=== PATIENT | male | born 1980 | race Caucasian/White ===

== ENCOUNTER 2016-11-06 12:24 | Observation (INO) | payer MEDICARE, MEDICAID ==
[2016-11-06] MEDS ORDERED: NS 0.9% 1000 ML* 1,000 ML IV ONE (13:09)
[2016-11-06 13:33] LABS: Mean Platelet Volume 8 um3 (7.4-10.4)
[2016-11-06 13:37] LABS: Hematocrit 18 % (42-52); Mean Corpuscular HGB Conc 29 g/dl (31-36); Mean Corpuscular Hemoglobin 20 pg (27-31); Mean Corpuscular Volume 69 fL (80-94); Red Blood Count 2.66 10^6/ul (4.0-5.4); Red Cell Distribution Width 24 % (10.5-15); White Blood Count 10.8 10^3/ul (3.5-10.8)
[2016-11-06 13:38] LABS: Comments Flag Yes
[2016-11-06 13:41] LABS: Add Diff/Slide Review? Slide Review Added; Hemoglobin 5.3 g/dl (14.0-18.0)
[2016-11-06 13:47] LABS: ALT 5 U/L (7-52); AST 7 U/L (13-39); Albumin 3.7 g/dL (3.2-5.2); Alkaline Phosphatase 51 U/L (34-104); Anion Gap 6 mmol/L (2-11); BUN/Creatinine Ratio 23.2 (8-20); Blood Urea Nitrogen 16 mg/dL (6-24); C Reactive Protein 12.15 mg/L (< 5.00); CO2 Carbon Dioxide 35 mmol/L (22-32); Calcium 9.3 mg/dL (8.6-10.3); Chloride 99 mmol/L (101-111); EGFR Non-African American 128.3 (>60); Globulin 3.2 g/dL (2-4); Glucose 113 mg/dL (70-100); Potassium 3.6 mmol/L (3.5-5.0); Sodium 140 mmol/L (133-145); Total Protein 6.9 g/dL (6.4-8.9)
--- NOTE | 2016-11-06 13:48 | RAD ---
HISTORY: Shortness of breath, pneumonia COMPARISONS: May 11, 2012 VIEWS:1: Single frontal portable view of the chest at 1:28 PM FINDINGS: LINES AND TUBES: None. CARDIOMEDIASTINAL SILHOUETTE: The cardiomediastinal silhouette is stable. PLEURA: The costophrenic angles are sharp. No pleural abnormalities are noted. LUNG PARENCHYMA: There is prominence of the central pulmonary vasculature ABDOMEN: The upper abdomen is clear. There is no subphrenic gas. BONES AND SOFT TISSUES: No bone or soft tissue abnormalities are noted. IMPRESSION: PULMONARY VASCULAR CONGESTION
[2016-11-06 13:49] LABS: Troponin I 0.01 ng/mL (<0.04)
[2016-11-06 13:57] LABS: Microcytosis 2+; Tear Drop Cells 1+
[2016-11-06 13:58] LABS: Add Path Review? YES; Polychromasia 1+
[2016-11-06] MEDS ORDERED: Acetaminophen TAB* 325 MG PO PRN (14:18)
[2016-11-06] MEDS ORDERED: Ondansetron INJ* 2 MG/ML VIAL IV PRN (14:18)
[2016-11-06] MEDS ORDERED: Furosemide IV* 10 MG/ML 2 ML VIAL (20 MG) IV SLOW PU ONE (14:20)
[2016-11-06 14:43] LABS: Iron 21 ug/dL (50-212); Total Iron Binding Capacity 507 mcg/dL (250-450); Transferrin 362 mg/dL (203-362)
[2016-11-06 15:02] LABS: Ferritin < 10.0 ng/mL (24-336)
[2016-11-06 15:08] LABS: Folate 12.07 ng/mL (>3.99)
[2016-11-06 15:09] LABS: Vitamin B12 181 pg/mL (180-914)
--- NOTE | 2016-11-06 15:09 | ED ---
Juice Rowan Salem, scribed for Hunter Galicia MD on 11/06/16 at 1253 . Shortness of Breath - HPI Summary HPI Summary: Patient is a 36 y/o M who presents to the ED with SOB for the past 3 days. Per, PCP H&H is abnormal and pt is oxygenating differently. Pt denies pain, cough, or diarrhea. Caregivers present at bedside state that his normal O2 Sat is in the 80s and typically drops with exertion, his normal HR in the 100s, and that he typically breaths with his abd. They deny blood in stool or syncope. No hx of blood transfusion. Pt has no other complaints. Pt has been taking iron pills for the past 2 days. - History of Current Complaint Chief Complaint: EDShortnessOfBreath Time Seen by Provider: 11/06/16 12:36 Hx Obtained From: Family/Client Professional, EMS Onset/Duration: Gradual Onset, Lasting Days, Still Present Timing: Constant Current Severity: Moderate Dyspnea At: Rest Aggrevating Factors: Movement Alleviating Factors: Nothing Associated Signs & Symptoms: Negative - Allergy/Home Medications Allergies/Adverse Reactions: Allergies Allergy/AdvReac Type Severity Reaction Status Date / Time No Known Allergies Allergy Verified 11/06/16 13:22 Home Medications: Home Medications Hydrochlorothiazide [Microzide-] 12.5 mg PO DAILY 11/06/16 [History Confirmed ] Iron-Vitamin C 65/125(Nf) [Vitron-C (NF)] 1 tab PO DAILY 11/06/16 [History Confirmed 11/06/16] Ramipril CAP* [Altace CAP*] 5 mg PO DAILY 11/06/16 [History Confirmed 11/06/16] amLODIPine TAB* [Norvasc 5 mg TAB*] 10 mg PO DAILY 11/06/16 [History Confirmed 11/06/16] PMH/Surg Hx/FS Hx/Imm Hx Cardiovascular History: Reports: Hx Hypertension Infectious Disease History: Denies: Traveled Outside the [place] in Last 30 Days - Family History Known Family History: Positive: Cardiac Disease - Social History Alcohol Use: None Hx Substance Use: No Substance Use Type: Reports: None Hx Tobacco Use: No Smoking Status (MU): Never Smoked Tobacco Review of Systems Constitutional: Other - No pain. Positive: Shortness Of Breath. Negative: Cough Negative: Diarrhea Genitourinary: Negative - No blood in stool. Negative: Syncope All Other Systems Reviewed And Are Negative: Yes Physical Exam - Summary Physical Exam Summary: The patient is well-nourished in no acute distress and in no acute pain. The skin is pale and dry. HEENT: The head is normocephalic and atraumatic. The pupils are equal and reactive. The conjunctivae are clear, without drainage, and are not pale. Nares are patent and without drainage. Mouth reveals dry mucous membranes and the throat is without erythema and exudate. The external ears are intact. The ear canals are patent and without drainage. The tympanic membranes are intact. Neck is supple with full range of motion and non-tender. There are no carotid bruits. There is no neck vein distension. Respiratory: Chest is non-tender. Lungs are clear to auscultation and breath sounds are symmetrical and equal. Intercostal retractions. Cardiovascular: Heart is tachycardic. There is no murmur or rub auscultated. Abdomen: The abdomen is soft and non-tender. There are normal bowel sounds heard in all four quadrants. Musculoskeletal: There is no back pain noted. Extremities are non-tender with full range of motion. Capillary refill in 3-4seconds. There is swelling of lower extremities. Neurological: Patient is alert and oriented to person, place and time. The patient has symmetrical motor strength in all four extremities. Psychiatric: The patient has an appropriate affect and does not exhibit any anxiety or depression. Triage Information Reviewed: Yes Vital Signs On Initial Exam: Initial Vitals Temp Pulse Resp BP Pulse Ox 99.1 F 104 20 148/106 82 11/06/16 12:29 11/06/16 12:29 11/06/16 12:29 11/06/16 12:29 11/06/16 12:29 Vital Signs Reviewed: Yes Diagnostics - Vital Signs Vital Signs Temp Pulse Resp BP Pulse Ox 11/06/16 12:29 99.1 F 104 20 148/106 82 - Laboratory Lab Results: Lab Results 11/06/16 11/06/16 11/06/16 Range/Units 13:15 13:15 13:15 WBC 10.8 (3.5-10.8) 10^3/ul RBC 2.66 L (4.0-5.4) 10^6/ul RBC (Retic) Cancelled Hgb 5.3 L* (14.0-18.0) g/dl Hct 18 L (42-52) % HCT (Retic) Cancelled MCV 69 L (80-94) fL MCH 20 L (27-31) pg MCHC 29 L (31-36) g/dl RDW 24 H (10.5-15) % Plt Count 340 (150-450) 10^3/ul MPV 8 (7.4-10.4) um3 Neut % (Auto) 80.2 (38-83) % Lymph % (Auto) 11.1 L (25-47) % Will % (Auto) 7.4 (1-9) % Eos % (Auto) 0.8 (0-6) % Baso % (Auto) 0.5 (0-2) % Absolute Neuts (auto) 8.6 H (1.5-7.7) 10^3/ul Absolute Lymphs (auto) 1.2 (1.0-4.8) 10^3/ul Absolute Monos (auto) 0.8 (0-0.8) 10^3/ul Absolute Eos (auto) 0.1 (0-0.6) 10^3/ul Absolute Basos (auto) 0.1 (0-0.2) 10^3/ul Absolute Nucleated RBC 0.03 10^3/ul Nucleated RBC % 0.3 Normal RBC Morphology Not Reportable Polychromasia 1+ Microcytosis 2+ Tear Drop Cells 1+ Elliptocytes 1+ Retic Count, Calc Cancelled Corrected Retic Count Cancelled Retic Shift Factor Cancelled Retic Production Index Cancelled Immature Retic Fraction Cancelled Mean Retic Volume Cancelled Hem Pathologist Commnt Pending Sodium 140 (133-145) mmol/L Potassium 3.6 (3.5-5.0) mmol/L Chloride 99 L (101-111) mmol/L Carbon Dioxide 35 H (22-32) mmol/L Anion Gap 6 (2-11) mmol/L BUN 16 (6-24) mg/dL Creatinine 0.69 (0.67-1.17) mg/dL Est GFR ( Amer) 165.0 (>60) Est GFR (Non-Af Amer) 128.3 (>60) BUN/Creatinine Ratio 23.2 H (8-20) Glucose 113 H (70-100) mg/dL Lactic Acid 1.2 (0.5-2.0) mmol/L Calcium 9.3 (8.6-10.3) mg/dL Iron 21 L (50-212) ug/dL TIBC 507 H (250-450) mcg/dL % Saturation 4 L (15-55) % Unsat Iron Binding 486 ug/dL Ferritin < 10.0 L (24-336) ng/mL Total Bilirubin 0.40 (0.2-1.0) mg/dL AST 7 L (13-39) U/L ALT 5 L (7-52) U/L Alkaline Phosphatase 51 (34-104) U/L Lactate Dehydrogenase 156 (140-271) U/L Troponin I 0.01 (<0.04) ng/mL C-Reactive Protein 12.15 H (< 5.00) mg/L B-Natriuretic Peptide ( - 100) pg/mL Total Protein 6.9 (6.4-8.9) g/dL Albumin 3.7 (3.2-5.2) g/dL Globulin 3.2 (2-4) g/dL Albumin/Globulin Ratio 1.2 (1-3) Vitamin B12 Pending Folate Pending Blood Type Antibody Screen Crossmatch 11/06/16 11/06/16 Range/Units 13:15 13:15 WBC (3.5-10.8) 10^3/ul RBC (4.0-5.4) 10^6/ul RBC (Retic) Hgb (14.0-18.0) g/dl Hct (42-52) % HCT (Retic) MCV (80-94) fL MCH (27-31) pg MCHC (31-36) g/dl RDW (10.5-15) % Plt Count (150-450) 10^3/ul MPV (7.4-10.4) um3 Neut % (Auto) (38-83) % Lymph % (Auto) (25-47) % Will % (Auto) (1-9) % Eos % (Auto) (0-6) % Baso % (Auto) (0-2) % Absolute Neuts (auto) (1.5-7.7) 10^3/ul Absolute Lymphs (auto) (1.0-4.8) 10^3/ul Absolute Monos (auto) (0-0.8) 10^3/ul Absolute Eos (auto) (0-0.6) 10^3/ul Absolute Basos (auto) (0-0.2) 10^3/ul Absolute Nucleated RBC 10^3/ul Nucleated RBC % Normal RBC Morphology Polychromasia Microcytosis Tear Drop Cells Elliptocytes Retic Count, Calc Corrected Retic Count Retic Shift Factor Retic Production Index Immature Retic Fraction Mean Retic Volume Hem Pathologist Commnt Sodium (133-145) mmol/L Potassium (3.5-5.0) mmol/L Chloride (101-111) mmol/L Carbon Dioxide (22-32) mmol/L Anion Gap (2-11) mmol/L BUN (6-24) mg/dL Creatinine (0.67-1.17) mg/dL Est GFR ( Amer) (>60) Est GFR (Non-Af Amer) (>60) BUN/Creatinine Ratio (8-20) Glucose (70-100) mg/dL Lactic Acid (0.5-2.0) mmol/L Calcium (8.6-10.3) mg/dL Iron (50-212) ug/dL TIBC (250-450) mcg/dL % Saturation (15-55) % Unsat Iron Binding ug/dL Ferritin (24-336) ng/mL Total Bilirubin (0.2-1.0) mg/dL AST (13-39) U/L ALT (7-52) U/L Alkaline Phosphatase (34-104) U/L Lactate Dehydrogenase (140-271) U/L Troponin I (<0.04) ng/mL C-Reactive Protein (< 5.00) mg/L B-Natriuretic Peptide 48 ( - 100) pg/mL Total Protein (6.4-8.9) g/dL Albumin (3.2-5.2) g/dL Globulin (2-4) g/dL Albumin/Globulin Ratio (1-3) Vitamin B12 Folate Blood Type A Positive Antibody Screen Negative Crossmatch See Detail Result Diagrams: 11/06/16 13:15 11/06/16 13:15 Lab Statement: Any lab studies that have been ordered have been reviewed, and results considered in the medical decision making process. - Radiology CXR Radiology Interpretation Completed By: Radiologist - IMPRESSION: PULMONARY VASCULAR CONGESTION - EKG 1317 EKG Rhythm: Sinus Tachycardia - 102bpm EKG Interpretation: Non-specific ST changes. Nml axis. No STEMI. QT interval nml. Course/Dx - Course Course Of Treatment: 36 y/o M presents with SOB for the past 3 days. Per PCP, pt s Hemoglobin = 6 and hematocrit = 20. Deny pain, cough, diarrhea, blood in stool, or syncope. Pt received fluids in ED course. EKG shows Sinus tachycardia @ 102bpm. Non-specific ST changes. Nml axis. No STEMI. QT interval nml. CXR shows, per radiology, IMPRESSION: PULMONARY VASCULAR CONGESTION. Will admit pt to Dr. Beckford. Accepted at 1330. - Diagnoses Differential Diagnosis/HQI/PQRI: Positive: Other - gi bleed, Provider Diagnoses: Symptomatic anemia, SOB (shortness of breath), GI (gastrointestinal bleed) - Physician Notifications Discussed Care of Patient With: Lauren Hernández Time Discussed With Above Provider: 13:05 Instructed by Provider To: Other - He has been having increased SOB, O2 sat in 70s, and dyspnea on exertion. Discharge - Discharge Plan Condition: Stable Disposition: ADMITTED TO [facility] Referrals: Lauren Hernández [Primary Care Provider] - The documentation as recorded by the Juice kendrick Salem accurately reflects the service I personally performed and the decisions made by , Hunter Galicia MD.
[2016-11-06 16:03] LABS: Corrected Retic Count 2.6 % (0.5-1.5); Immature Retic Fraction 0.69; Maturation Factor Retic 2.5
[2016-11-06 16:10] LABS: Comments Flag Yes
[2016-11-06] MEDS: Pantoprazole IV* 40 MG IV SCH (17:28)
[2016-11-06 22:33] LABS: Urine Bilirubin Negative (Negative); Urine Glucose Negative (Negative); Urine Nitrite Negative (Negative)
--- NOTE | 2016-11-07 01:54 | HP ---
CC: Lauren Hernández NP* HISTORY AND PHYSICAL: DATE OF ADMISSION: 11/06/16 PRIMARY CARE PROVIDER: Lauren Hernández NP. ATTENDING PHYSICIAN WHILE IN THE HOSPITAL: Rachele Beckford DO* (report dictated by Skyler Arroyo NP). CHIEF COMPLAINT: 1. Shortness of breath. 2. Low H and H. HISTORY OF PRESENT ILLNESS: Mr. Arzate is a 36-year-old male patient who has a history of anemia with iron deficiency, he has a history of intellectual developmental delay, it is mild. He has a history of hypertension. In addition to this, the mother states he was diagnosed at with genital anomalies. She comes in today because 2 days ago, they went to the doctor's office. It was noted that he had O2 saturations in the 70s. At that point, the patient's labs were drawn. His sats come up into the 90s with deep breathing exercises. The mother says that his is not too uncommon for him to have low O2 saturations because of his pattern of breathing. He had labs drawn. The family did receive a phone call today that the labs were low. His hemoglobin was 6 and the family was instructed to come into the hospital. There has been no reports of NSAID use. There has been no reports of tarry black stools. There has been no reports of lightheadedness or dizziness. The patient says he does not feel short of breath currently. He denies any chest pain. There has been no vomiting and there has been no bright red blood per rectum and no obvious signs of bleeding. The mother says that at times she does stop his iron pills for periods of time because it does cause him to be constipated. He has been chronically on iron medications. He had an upper endoscopy about [address] Jasso. There were some gastric erosions. This may have been the source of bleeding and he was placed on omeprazole. Unfortunately though, the patient does have hemoglobin of 5 today and 2 years ago was 15 and 14 respectively. The patient came into the ER, was evaluated, there was obviously concern for the low H and H and we were asked to evaluate for an admission. PAST MEDICAL HISTORY: Significant for: 1. Anemia. 2. Intellectual developmental delay. 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 4. Hypertension. PAST SURGICAL HISTORY: 1. He has had a cleft palate repair. 2. He has had left lower extremity surgeries for lengthening. MEDICATIONS: The home medications according to their handwritten list include: 1. Norvasc 10 mg daily. 2. Ramipril 5 mg daily. 3. Iron with vitamin C 1 tablet p.o. daily. 4. Hydrochlorothiazide 12.5 mg daily. ALLERGIES TO MEDICATIONS: Include no known drug allergies. FAMILY HISTORY: Reviewed and essentially noncontributory. SOCIAL HISTORY: He lives with his family. He does not smoke. He rarely drinks alcohol. Surrogate decision maker and guardian is his mother. REVIEW OF SYSTEMS: There is no documented fever. Denied having any significant weight changes. There was no double vision. There is no ear discharge. Denies having any rhinorrhea. No sore throat. No thyroid enlargement. Denied having any chest pain. There was no orthopnea. There was no nocturnal dyspnea. There was no abdominal discomfort. No nausea. No vomiting. No dysuria. No frequency. There was no seizure. No loss of consciousness. No pruritus and no skin ulcerations. Review of 14 systems completed, all others negative. PHYSICAL EXAMINATION GENERAL: At this time, Mr. Arzate is a 36-year-old male patient. He is sitting on the ER stretcher. He does not appear to be in any acute distress. VITAL SIGNS: Blood pressure 128/85, pulse 104, respirations 22, O2 sat 97% on room air, temperature 98.6. HEENT: Head is atraumatic and normocephalic. Eyes: EOMs are intact. Sclerae anicteric. He did appear to have pale lips and pale sclerae. His tongue was midline. Oral mucosa appeared to be moist. No oropharyngeal erythema. LUNGS: Clear to auscultation bilaterally. There are no wheezes, rales, or rhonchi. HEART: Sounds S1 and S2. Regular rate and rhythm. No murmurs, rubs, or gallops. ABDOMEN: Soft, flat and nontender. Bowel sounds are present. RECTAL: Did reveal brown stool. There was no melena noted and no bright red blood per rectum. EXTREMITIES: Pulses were 2+ throughout. He is able to move all 4 extremities. NEUROLOGIC: He is awake and he is alert and no gross focal deficits. SKIN: Intact. LABORATORY DATA AND DIAGNOSTIC STUDIES: The labs today revealed WBC of 10.8, RBC of 2.66, hemoglobin 5.3, hematocrit of 18, platelet count was 340,000. His sodium was 140, potassium 3.6, chloride of 99, bicarb 35, BUN 16, creatinine of 0.69, glucose 113, lactic 1.2, calcium 9.3. His iron was 21, which is low with iron saturation was 4, ferritin is pending. His total bili 0.4, AST 7, ALT 5, alk phos 51, LDH 156, troponin 0.01, CRP of 12.15. B12 and folate pending. Albumin normal. Chest x-ray obtained today and under my review, it is a very difficult and limited exam because of the patient's positioning. Radiology reads it as pulmonary vascular congestion. EKG obtained today as well, which revealed sinus tachycardia, rate of 102, no ST elevations or T wave inversions. He had subtle depression in lead II, III and aVF, but no previous for comparison. Old medical records were reviewed. ASSESSMENT AND PLAN: Mr. Arzate is a 36-year-old male patient coming into the ER today with complaints of abnormal blood work and shortness of breath. He will be admitted under observation status for: 1. Anemia. At this point, he certainly could have iron deficiency anemia. My plan is to go ahead and get a Hemoccult and if this is positive, then I would get in touch with GI, but he probably needs another scope at some point. Whether or not this needs to be done emergently in the hospital, I would like to see the Hemoccult. If it is positive, then I probably would do it here. We will check his H and H an hour after 2 units of blood. I will give him 20 of Lasix between the 2 units of blood. I am sending off reticulocyte counts in addition to his haptoglobin. I am sending off iron studies and B12 studies. We may need to consider followup with Hematology/Oncology as well depending on these findings, but for the time being, we will give him 2 units of blood and repeat his labs an hour after the blood. 2. Hypertension. Continue meds as prescribed except for the hydrochlorothiazide. 3. History of intellectual developmental delay. We will continue with supportive care. 4. DVT prophylaxis. Because of low H and H, he will be placed on SCDs. 5. Code status. Full code. 6. Fluids, electrolytes, nutrition. He can have a regular diet. TIME SPENT: Time spent on the admission was approximately 60 minutes; greater than half of the time spent [id number] with the patient obtaining my history and physical; other half time spent going over the plan of care with the patient and implementing plan of care. I did discuss the plan of care with my attending, Dr. Beckford, she is in agreement. SKYLER ARROYO, RAW HIDE TRIMMER [id number]/[facility]PS #: [id number] SANDRITA
[2016-11-07] MEDS: Pantoprazole IV* 40 MG IV SCH (05:09)
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
[2016-11-07] MEDS: amLODIPine TAB* 5 MG PO SCH ×2 (08:27→13:32)
[2016-11-07] MEDS: Ramipril CAP* 5 MG PO SCH ×2 (08:27→13:32)
[2016-11-07] MEDS ORDERED: Meperidine SYRINGE* 50 MG/ML ONE (10:32)
[2016-11-07] MEDS ORDERED: Midazolam* 1 MG/ML 10 ML VIAL (10 MG) ONE (10:32)
[2016-11-07 12:40] VITALS: BP 118/57
[2016-11-07 13:04] LABS: Hematocrit 24 % (42-52); Hemoglobin 7.3 g/dl (14.0-18.0); Mean Corpuscular HGB Conc 31 g/dl (31-36); Mean Corpuscular Hemoglobin 23 pg (27-31); Mean Corpuscular Volume 74 fL (80-94); Mean Platelet Volume 8 um3 (7.4-10.4); Red Blood Count 3.19 10^6/ul (4.0-5.4); Red Cell Distribution Width 25 % (10.5-15); White Blood Count 8.3 10^3/ul (3.5-10.8)
[2016-11-07 13:09] LABS: Add Diff/Slide Review? Manual Diff Added; Comments Flag Yes
[2016-11-07 13:14] LABS: BUN/Creatinine Ratio 12.1 (8-20); EGFR African American 173.7 (>60); EGFR Non-African American 135.1 (>60)
[2016-11-07 13:38] LABS: Immature Granulocytes 2 % (0-9); Microcytosis 1+; Myelocytes % 1 % (0-1); Neutrophil % 80 % (38-83)
[2016-11-07 13:39] LABS: Hypochromasia 2+; Polychromasia 1+
--- NOTE | 2016-11-08 08:17 | PRO ---
DATE: 11/07/16 - ROOM #411 REFERRING PRACTITIONER: Lauren Hernández NP, [place], [place] * PROCEDURE: Upper gastrointestinal endoscopy and CLOtest and biopsy of gastric fundal polyp. 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 He has been transfused two units and has been stable here in the hospital. See separate consultation. He has not had any overt bleeding as an outpatient and has been on omeprazole chronically, which dose relieve complaints of reflux. Informed consent was obtained with the patient's mother. ENDOSCOPIST: Dr. Crenshaw MEDICATIONS: Midazolam 5, meperidine 25. FINDINGS: He is a middle-aged man clearly with an abnormal physical structure with a short neck, thick tongue, but in no respiratory distress. Meds were given gradually and monitored closely. EGD: Larynx - no erythema, but only limited views. Esophagus - easily entered. Mucosa is normal in the upper, mid, and lower esophagus with the EG junction at 32 with no erosions or scarring. Stomach - large hiatal hernia, but no overt erosions. No blood was seen. A polyp was seen at the hiatal margin 12 to 13 mm somewhat granular with a spherical shape on a short stalk. Later in the procedure was biopsied x5. Otherwise, the rugal pattern was normal. In the proximal antrum, grater curvature aspect, there was a pale 3 to 4 mm polyp removed with biopsy forceps and submitted separately. A CLOtest also was taken. There were some minimal erosions in the distal antrum. There was no bleeding or wispy blood loss and no deformity. They were quite minimal. The pylorus appeared normal. Duodenum - the bulb and second through fourth portions appeared normal. IMPRESSION: 1. Large hiatal hernia - no Ray's erosions seen. 2. Minimal prepyloric erosions - CLOtest pending. 3. Gastric antral polyp - likely fundic gland. Addendum: hyperplastic FGP - will discuss with mother at OV 4. Gastric fundal polyp - appears benign and will need to be removed eventually though it was hypermobile with respirations, which were heightened in this man with a large hiatal hernia. Safe removal would require mosque of his hemoglobin and probably general anesthesia so the area can be still, presumably after a short interval with hyperventilation. 5. Iron-deficiency anemia - another Hemoccult was sent today as none of the issues identified above would likely cause heme-positive stool. Colonoscopy is a consideration, but clearly will be much more difficult than average to orchestrate safely and effectively. [id number]/[facility] #: [id number] SANDRITA
--- NOTE | 2016-11-08 12:30 | DS ---
CC: Lauren Hernández, [place]; Dr. Crenshaw* DISCHARGE SUMMARY: DATE OF ADMISSION: 11/06/16 DATE OF DISCHARGE: 11/07/16 PRIMARY CARE PROVIDER: Lauren Hernández, nurse practitioner. DISCHARGE DIAGNOSIS: Microcytic anemia most likely due to upper gastrointestinal bleed. The patient is status post endoscopy performed by Dr. Crenshaw on 11/07/16, which showed mild gastritis and a gastric polyp that was biopsied with pathology pending. SECONDARY DIAGNOSES: 1. History of anemia. 2. History of intellectual developmental delay. 3. Hypertension. 4. History of cleft palate repair. 5. History of ambulatory dysfunction. The patient ambulates with a walker or a wheelchair. MEDICATIONS AT DISCHARGE: Includes: 1. Ferrous sulfate 325 mg p.o. b.i.d. 2. Ramipril 5 mg daily. 3. Multivitamin 1 tablet daily. 4. Vitamin B12 1000 mcg p.o. daily. CONSULTATIONS DURING THE HOSPITAL STAY: Included from Dr. Crenshaw from gastroenterology. LABORATORY DATA AND STUDIES PERFORMED DURING THE HOSPITAL STAY: Included: On 11/06/16, white blood cell count of 8.3, hemoglobin of 7.2, hematocrit of 24 and platelets of 259. Sodium was 139, potassium 4.0, chloride 100, carbon dioxide 30, BUN 8, creatinine 0.66. The patient's TIBC was 507, iron of 21, % iron saturation of 4 and ferritin of below 10, vitamin B12 of 181 and folate 12. HOSPITALIZATION COURSE: Mr. Mathieu Arzate is a 36-year-old male with history of chromosomal abnormality at who is under the care of his parents throughout his life. He had history of vitamin deficiency anemia in the past, but the patient's mother had been treating it with [id number] iron pills with vitamin C a couple of times a week due to the side effect being constipation. The patient presented to the hospital after a routine blood work noted for the patient to have a hemoglobin of 5. He had no history of melena or bright red blood per rectum, but his stool Hemoccult was positive. He was placed on overnight observation and transfused two units of packed red blood cells with a good response from hemoglobin of 5.3 to 7.3 at that time of discharge. Dr. Crenshaw performed endoscopy on this patient that shows mild gastritis and gastric polyp that was biopsied. Mr. Crenshaw would like to see the patient approximately 4 weeks after discharge. At discharge, the patient is recommended to follow up with his primary care provider in approximately 1 week. The patient is also recommended to have iron supplements as directed above with an rife-erw-nernylt laxative as needed. A repeat CBC is ordered for 3 weeks approximately a week prior to followup with Dr. Crenshaw. The patient was also noted to have vitamin B12 at 181 and he was prescribed vitamin B12 oral supplementation. [id number]/[facility] #: [id number] SANDRITA
== END 2016-11-07 16:20 | disposition home or self-care (01) ==
LOC: ED 12:24 → MED 14:15
PROVIDERS: ADMIT Hospitalist; ATTEND Internal Medicine
DX: D50.9 Iron deficiency anemia, unspecified (principal); R06.02 Shortness of breath; K29.70 Gastritis, unspecified, without bleeding; K92.1 Melena; K44.9 Diaphragmatic hernia without obstruction or gangrene; K31.7 Polyp of stomach and duodenum; R09.89 Other specified symptoms and signs involving the circulatory and respiratory systems; R00.0 Tachycardia, unspecified; I10 Essential (primary) hypertension; R06.00 Dyspnea, unspecified; F81.9 Developmental disorder of scholastic skills, unspecified
CPT/HCPCS: 36415; 71010; 80048; 80053; 81003; 82272; 82607; 82728; 82746; 83010; 83540; 83550; 83605; 83615; 83880; 84484; 85025; 85045; 85060; 85610; 86140; 86850; 86900; 86901; 86922; 87077; 87641; 88305; 88342; 93005; 94760; 96361; 96374; 96375; 96376; 99283; A9270-GY; G0378; J1940; J2250; P9040

== ENCOUNTER 2017-01-01 10:23 | Inpatient (IN) | payer MEDICARE, MEDICAID ==
[2017-01-01 13:15] LABS: Hematocrit 15 % (42-52); Mean Corpuscular HGB Conc 29 g/dl (31-36); Mean Corpuscular Hemoglobin 22 pg (27-31); Mean Corpuscular Volume 75 fL (80-94); Mean Platelet Volume 7 um3 (7.4-10.4); Red Blood Count 2.01 10^6/ul (4.0-5.4); White Blood Count 6.9 10^3/ul (3.5-10.8)
[2017-01-01 13:17] LABS: Comments Flag Yes
[2017-01-01 13:18] LABS: Red Cell Distribution Width 23 % (10.5-15)
[2017-01-01 13:20] LABS: Hemoglobin 4.4 g/dl (14.0-18.0)
[2017-01-01 13:30] LABS: ALT 5 U/L (7-52); AST 8 U/L (13-39); Albumin 3.8 g/dL (3.2-5.2); Alkaline Phosphatase 49 U/L (34-104); Anion Gap 4 mmol/L (2-11); BUN/Creatinine Ratio 14.8 (8-20); Blood Urea Nitrogen 9 mg/dL (6-24); CO2 Carbon Dioxide 36 mmol/L (22-32); Calcium 9.6 mg/dL (8.6-10.3); Chloride 98 mmol/L (101-111); EGFR African American 190.3 (>60); EGFR Non-African American 147.9 (>60); Globulin 2.7 g/dL (2-4); Glucose 107 mg/dL (70-100); Lipase < 10 U/L (11.0-82.0); Potassium 3.9 mmol/L (3.5-5.0); Sodium 138 mmol/L (133-145); Total Protein 6.5 g/dL (6.4-8.9)
[2017-01-01] MEDS ORDERED: Ondansetron INJ* 2 MG/ML VIAL IV PRN (14:39)
[2017-01-01] MEDS ORDERED: Acetaminophen TAB* 325 MG PO PRN (14:39)
[2017-01-01] MEDS ORDERED: Furosemide IV* 10 MG/ML 2 ML VIAL (20 MG) IV ONE (14:42)
[2017-01-01 15:14] LABS: Urine Bacteria Absent (Absent); Urine Bilirubin Negative (Negative); Urine Glucose Negative (Negative); Urine Nitrite Negative (Negative)
--- NOTE | 2017-01-01 16:39 | HP ---
CC: Lauren Hernández NP; Dr. Jasso * HISTORY AND PHYSICAL: DATE OF ADMISSION: 01/01/17 PRIMARY CARE PROVIDER: Lauren Hernández NP ATTENDING PHYSICIAN: Rebecca Godoy MD * (report being dictated by Skyler Arroyo NP). CHIEF COMPLAINT: Abnormal labs. HISTORY OF PRESENT ILLNESS: Mr. Arzate is a 36-year-old male patient who has a history of intellectual developmental delay who has had issues with anemia recently here about 7 weeks ago in the beginning of November with low H and H, thought may be related to a GI bleed. He was admitted. No source was found. He was discharged, doing well and he was seeing Dr. Jasso in followup for possible colonoscopy. Repeat labs were obtained yesterday and it was noted that his hemoglobin was 4. At that point, he was directed to the ER today. The patient states that he has not been having any tarry stool. Mother says this as well, who helps care for him. There has been no vomiting, no coffee-ground emesis. The patient states he just has been feeling a little feeling tired. There has been no chest pain, no shortness of breath. There has been no abdominal pain. There has been no nausea, no vomiting, no dysuria, no frequency. There was no seizure, no loss of consciousness, no pruritus. There has been no again reports of NSAID use and no alcohol use. Mother does state that he has been evaluated by Dr. Crabtree, it was felt that there may be a subtle bleed going on that may be contributing to this in addition to the iron deficiency anemia. He came in, was evaluated by Dr. Anderson. It was noted that his H and H was low. Hospitalist service was asked to evaluate for admission. PAST MEDICAL HISTORY: Significant for: 1. Anemia. 2. Intellectual developmental delay. 3. Hypertension. 4. Genital anomalies. PAST SURGICAL HISTORY: The patient has a cleft palate. He has had left lower extremity surgery in the past. MEDICATIONS: The home meds according to the list that was obtained include: 1. Omeprazole 20 mg p.o. daily. 2. B12 at 1000 mcg daily. 3. Ramipril 5 mg p.o. daily. 4. Iron with vitamin C 1 tablet p.o. daily. 5. Hydrochlorothiazide 12.5 mg p.o. every other day. ALLERGIES: To medications include no known drug allergies. FAMILY HISTORY: The mother states that neither the mother or father have diabetes, hypertension, or any other medical problems. She states that both are heathy. SOCIAL HISTORY: The patient does not smoke. He does not drink. Surrogate decision maker is the patient's mother. REVIEW OF SYSTEMS: There is no documented fever. He denied having any significant weight change. There was no double vision. There was no ear discharge. He denied having any rhinorrhea. There was no sore throat. No thyroid enlargement. Denies having any chest pain. There was no orthopnea. No nocturnal dyspnea. There was no again abdominal pain. No nausea, no vomiting, no dysuria, no frequency. There was no seizure, no loss of consciousness, no pruritus, and no skin ulcerations. Review of 14 systems was completed; all others negative. PHYSICAL EXAMINATION GENERAL: At this time, Mr. Arzate is a 36-year-old male patient. He appears to be well nourished, well developed. He does not appear to be in any acute distress. He is awake, he is alert and oriented to self and place. VITAL SIGNS: Blood pressure 124/56, pulse 94, respirations 18, O2 sat 100%, temperature 99.9. HEENT: Head is atraumatic and normocephalic. Eyes: EOMs are intact. Sclerae are anicteric. They did appear to be pale. No oropharyngeal erythema. LUNGS: Clear to auscultation. No wheezes, rales, or rhonchi. HEART: Sounds S1, S2. Regular rate and rhythm. No murmurs, rubs, or gallops. ABDOMEN: Soft, flat, nontender. EXTREMITIES: Pulses are 2+ throughout. He is moving all 4 extremities. RECTAL: Did elicit dark stool, appeared to be black but not appear to be tarry , appeared to be greenish too, most likely from his iron. NEUROLOGIC: Again, awake, alert, he is oriented to self and place. He does not appear to be in any acute distress. SKIN: Intact. LABORATORY DATA: The labs today revealed a WBC of 6.9, RBC of 2.01, hemoglobin of 4.4, hematocrit of 15, and a platelet count 234. The sodium was 138, potassium is 3.9, chloride 98, bicarb was 36, BUN 9, creatinine 0.61, glucose 107. Lactic 0.9. Calcium 9.6. Total bili 0.4, AST 8, ALT 5, his alk phos was 49, lipase was negative. Hemoccult is pending. Old medical records were reviewed. ASSESSMENT AND PLAN: Mr. Arzate is a 36-year-old male patient coming in to the ER today, complains of abnormal lab data. It is noted that his hemoglobin was 4. We were asked to evaluate for admission. He will be admitted under observation status for: 1. Anemia. Again, it is unclear if this is from the iron deficiency anemia or if the patient does have a slow bleed. He just had an upper EGD done about 7 weeks ago, which was essentially negative despite the fact that he had a gastric polyp. At this point, I am not going to put him on PPI drip. I am going to be touching base with Dr. Jasso. I did send off a Hemoccult specimen as well. If it is positive, I would consider putting him on b.i.d. PPI until he is seen by GI. I am going to give him 2 units of blood. I am also going to give him an infusion of Venofer iron as well and we will check serial H and Hs. We will maintain 2 IVs and we will continue to follow closely. 2. Hypertension. We will hold his medications in the setting of his acute anemia. 3. Intellectual developmental delay. Likely needs supportive care. 4. DVT prophylaxis. Because of low H and H, he is going to be put on SCDs. 5. Code status. Full code. 6. Fluids, electrolytes, and nutrition. Again, he will have a clear liquid diet. We are going to transfuse him 2 units of blood, repeat the H and H and follow him closely. TIME SPENT: Time spent on the admission was 60 minutes, greater than half time spent [id number] with the patient obtaining history and physical, other half time was spent going over the plan of care with the patient and implementing the plan of care. I discussed plan of care with my attending, Dr. Godoy; she is in agreement. SKYLER ARROYO, [place] [id number]/[facility] #: [id number] [facility]
[2017-01-01] MEDS ORDERED: Furosemide IV* 10 MG/ML 2 ML VIAL (20 MG) ONE (20:13)
[2017-01-02 01:07] LABS: Hematocrit 23 % (42-52); Hemoglobin 6.8 g/dl (14.0-18.0)
[2017-01-02 01:08] LABS: Comments Flag Yes
[2017-01-02 06:44] LABS: Hematocrit 24 % (42-52); Hemoglobin 7.4 g/dl (14.0-18.0); Mean Corpuscular HGB Conc 31 g/dl (31-36); Mean Corpuscular Hemoglobin 25 pg (27-31); Mean Corpuscular Volume 78 fL (80-94); Mean Platelet Volume 7 um3 (7.4-10.4); Red Blood Count 3.01 10^6/ul (4.0-5.4); Red Cell Distribution Width 20 % (10.5-15); White Blood Count 5.8 10^3/ul (3.5-10.8)
[2017-01-02 06:58] LABS: BUN/Creatinine Ratio 11.9 (8-20); EGFR African American 197.7 (>60); EGFR Non-African American 153.7 (>60); Potassium 3.6 mmol/L (3.5-5.0)
[2017-01-02] MEDS: Omeprazole CAP* 20 MG PO SCH (08:19)
[2017-01-02] MEDS ORDERED: LORazepam TAB(*) 0.5 MG PO PRN (11:18)
[2017-01-02 13:24] LABS: Hematocrit 25 % (42-52); Hemoglobin 7.7 g/dl (14.0-18.0)
[2017-01-02] MEDS ORDERED: Polyethylene Glycol 3350 BTL* 238 GM BTL PO ONE (15:00)
--- NOTE | 2017-01-02 16:02 | PN ---
Subjective Date of Service: 01/02/17 Interval History: Patient without complaints. Objective Active Medications: Acetaminophen (Tylenol Tab*) 650 mg PO Q4H PRN PRN Reason: FEVER/PAIN Lorazepam (Ativan Tab(*)) 0.25 mg PO Q24H PRN PRN Reason: ANXIETY Omeprazole (Prilosec Cap*) 20 mg PO DAILY FARHEEN Last Admin: 01/02/17 08:19 Dose: 20 mg Ondansetron HCl (Zofran Inj*) 4 mg IV Q6H PRN PRN Reason: NAUSEA Polyethylene Glycol/Electrolytes (Miralax) 59.5 gm PO 0800 ONE Stop: 01/03/17 08:01 Oxygen Devices in Use Now: None Appearance: Overweight gentleman sitting up in his chair in NAD Eyes: No Scleral Icterus Ears/Nose/Mouth/Throat: Clear Oropharnyx Neck: No Thyroid Enlargement, Masses Respiratory: Clear to Auscultation Cardiovascular: - - S1S2 mariana Abdominal: NL Sounds; No Tenderness; No Distention, No Hepatosplenomegaly Lymphatic: No Cervical Adenopathy Extremities: No Edema Skin: No Rash or Ulcers Neurological: Alert and Oriented x 3 Result Diagrams: 01/02/17 13:19 01/02/17 06:37 Assess/Plan/Problems-Billing Assessment: 36 year old gentleman who presented to [facility] [place] [facility] with significant anemia. - Patient Problems (1) Anemia Current Visit: Yes Status: Acute Code(s): D64.9 - ANEMIA, UNSPECIFIED SNOMED Code(s): 034103125 Comment: Based on prior labs does appear to be iron deficiency anemia. Had EGD before. For colonoscopy tomorrow AM. Monitor H/H. (2) Hypertension Current Visit: Yes Status: Acute Code(s): I10 - ESSENTIAL (PRIMARY) HYPERTENSION SNOMED Code(s): 83340575 Comment: Currently on no meds and adequately controlled. (3) DVT prophylaxis Current Visit: Yes Status: Acute Code(s): HCT6692 - SNOMED Code(s): 535413371 Comment: SCDs (4) Full code status Current Visit: Yes Status: Acute Code(s): Z78.9 - OTHER SPECIFIED HEALTH STATUS SNOMED Code(s): 224687669
[2017-01-02 20:24] LABS: Hematocrit 26 % (42-52); Hemoglobin 7.9 g/dl (14.0-18.0)
--- NOTE | 2017-01-02 20:51 | CONS ---
CC: Lauren Hernández NP * CONSULTATION REPORT: DATE OF CONSULT: 01/02/17 REQUESTING PROVIDER: Skyler Arroyo NP INDICATION: Anemia. NARRATIVE: This is a 36-year-old gentleman, well-known to ourselves, who was seen by Dr. Crenshaw back on 11/06/16 for anemia. He underwent an upper endoscopy at that time, which revealed large hiatal hernia with no Ray's erosions, a large antral polyp that was biopsied numerous times, a fundal polyp , but no obvious source for his chronic anemia was seen. He was eventually discharged to home and was recommended to follow up with myself. He had seen Hematology about a month ago, also recommended GI followup. The patient was ordered to have a CBC this past Tuesday. I received a call around 8 p.m. Tuesday night with a critical lab value of a hemoglobin of 4.7, I recommended to go to the emergency room. Recheck in the emergency room was 4.4, he was admitted to the hospital. He now is doing well. He did receive 3 units of blood. His hemoglobin has gone up to 7.4. He denies any abdominal pain. No nausea, no vomiting. He denies any blood in the stool; however, he was heme positive. PAST MEDICAL HISTORY: Significant for developmental delay, history of pneumonia , hypertension. PAST SURGICAL HISTORY: Includes club foot and cleft palate repair, tendon repairs. MEDICATIONS: Include: 1. Amlodipine 10 mg a day. 2. Ramipril 5 mg. 3. Hydrochlorothiazide 12.5. 4. Iron. SOCIAL HISTORY: No drugs or alcohol. REVIEW OF SYSTEMS: Twelve systems were reviewed, other than that mentioned in the HPI were unremarkable. PHYSICAL EXAM: Vital signs are stable. Temperature is 99.1, blood pressure is 130/56. General: Well-appearing male, appears approximately his stated age. Alert, oriented, pleasant. HEENT: Mucous membranes are moist without lesions, ulcers, or exudate. Neck is supple. Trachea is midline. Heart: Regular rate and rhythm. Lungs: Clear to auscultation. Abdomen: Positive bowel sounds. Obese, soft, nontender, nondistended. Skin is warm and dry. LABORATORY DATA: Of note, his BUN is 7, creatinine is 0.59. White count is 5.8 , hemoglobin from 4.4 to 7.4 after 3 units of blood, platelets of 198. ASSESSMENT AND PLAN: A 36-year-old gentleman with anemia with an essentially negative upper GI exam a couple of months ago. He remains very anemic. He is on oxygen, likely secondary to his anemia. He does need more of a GI workup. This was discussed extensively with his mother approximately half an hour on the phone, Tuesday night and then another half an hour in the room today. She understands the need for colonoscopy. We will make arrangements for the colonoscopy tomorrow; hopefully, he can prep well today. [id number]/[facility] #: [id number] MEDARDOD
[2017-01-03 02:28] LABS: Hematocrit 24 % (42-52); Hemoglobin 7.5 g/dl (14.0-18.0)
[2017-01-03] MEDS ORDERED: Polyethylene Glycol 3350 BTL* 238 GM BTL PO ONE (08:00)
[2017-01-03] MEDS: Omeprazole CAP* 20 MG PO SCH ×2 (08:52→09:08)
[2017-01-03 09:54] LABS: Hematocrit 27 % (42-52); Hemoglobin 8.4 g/dl (14.0-18.0)
[2017-01-03] MEDS ORDERED: Midazolam* 1 MG/ML 10 ML VIAL (10 MG) ONE (12:00)
[2017-01-03] MEDS ORDERED: Meperidine SYRINGE* 50 MG/ML ONE (12:00)
[2017-01-03 16:08] VITALS: BP 111/57
--- NOTE | 2017-01-04 00:42 | PRO ---
CC: Lauren Hernández NP; Dr. Ptaino * DATE OF PROCEDURE: 01/03/17 - ROOM #418 PROCEDURE: Colonoscopy. INDICATION: Severe anemia. REFERRING PROVIDERS: Lauren Hernández NP and Dr. Patino. MEDICATIONS GIVEN: 50 mg IV Demerol, 6 mg IV Versed. DESCRIPTION OF PROCEDURE: After the colonoscopy procedure, including the risks , benefits, and alternatives, not limited to perforation, surgery, and/or were explained to the patient and his mother, written consent was then obtained. IV medication was given and a rectal exam was performed. It was unremarkable. An Olympus colonoscope was then inserted into the patient's rectum and advanced very carefully through the entirety of the colon and into the cecal base. Careful and thorough inspection within the cecal base did not reveal any abnormalities. However, quality of the preparation on the right side of the colon was fairly terrible. There were stool balls and green colored stool, liquid stool throughout the right side especially in the cecum. I did try to suction and wash as much of this as I could; however, the stool balls continuously clogged the scope, thus I could not see any lesions, however, large lesions were not visualized. He does have a lipomatous-appearing ileocecal valve. Scope was then withdrawn in a very careful manner over the next 9 minutes through the remainder of the colon. He does have fairly severe left-sided diverticulosis, no bleeding. He also had a polyp at 20 cm in the sigmoid colon that was removed with jumbo biopsy forceps. I think that this was an innocent bystander and then he had small internal hemorrhoids, again I think an innocent bystander. Scope was withdrawn from the patient. He tolerated the procedure well and was returned to the recovery room in stable condition. IMPRESSION: 1. Complete colonoscopy into the cecum with biopsy polypectomy. 2. Single colon polyp, status post biopsy polypectomy. 3. Severe diverticulosis of the left side. 4. Anemia. 5. Internal hemorrhoids. 6. No etiology was seen for his anemia; however, again the quality of the preparation was fairly poor. I think he needs a capsule endoscopy; if this is negative, then back to Hematology for further evaluation. [id number]/[facility] #: [id number] MTDD
--- NOTE | 2017-01-04 02:24 | DS ---
CC: Lauren Hernández NP; Sandor Jasso MD * DISCHARGE SUMMARY: DATE OF ADMISSION: 01/01/17 DATE OF DISCHARGE: 01/03/17 PRIMARY CARE PHYSICIAN: Lauren Hernández NP FITNESS AND WELLNESS DIRECTOR: Sandor Jasso MD ADMISSION DIAGNOSIS: Anemia. SECONDARY DIAGNOSES: Hypertension and intellectual delay. DISCHARGE DIAGNOSES: Hypertension and intellectual delay. HOSPITAL COURSE: The patient is a 36-year-old gentleman, who presented to the [facility] when he was found to have very low H and H on followup labs. He had a similar scenario couple of months ago and he had an upper endoscopy, which was unremarkable. The patient himself has no complaints. He does not feel weak or tired and has no chest pain or shortness of breath. However, his report do note that he does have an intellectual developmental delay. The patient was seen in consult by GI, who proceeded with a colonoscopy. The colonoscopy was fairly unremarkable. The patient did have transfusion of 3 units of packed red blood cells and his hemoglobin went up accordingly from 4.4 to 7.4. The patient was stable with his hemoglobin and hematocrit throughout the hospitalization. It was thought that it was likely a slow bleed that occurs periodically and he was not in acute phase of it. The plan is for him to come back as an outpatient and possibly do a capsular endoscopy. He was noted to have a diverticulosis on the colonoscopy, which may also explain if he is having intermittent bleeding. The patient is stable to be discharged home on 01/03/17 with close followup with his PCP and GI. PHYSICAL EXAMINATION: On the date of discharge, pleasant gentleman, lying in bed, in no acute distress. Vital Signs: Temperature 98.4 degrees, heart rate of 89 beats per minute, respiratory rate 24 breaths per minute, pulse ox 100% on 2 L, blood pressure 115/67. HEENT: Normocephalic, atraumatic. Chest: Clear to auscultation and percussion bilaterally. Cardiovascular Exam: S1 and S2 appreciated. Abdominal Exam: Positive bowel sounds in all 4 quadrants. Soft, nontender, and nondistended. Extremities: No cyanosis, clubbing, or edema. +2 peripheral pulses bilaterally. Neuro: Alert and oriented x3. He moves all extremities. Skin: No rashes. STUDIES DONE WHILE IN THE HOSPITAL: Colonoscopy, again preliminary reports shows mostly diverticulosis, but no evidence of bleeding. DISCHARGE MEDICATIONS: 1. Hydrochlorothiazide 12.5 mg every 48 hours. 2. Omeprazole 1 tablet daily. 3. Vitamin B12 1000 mcg daily. 4. Ramipril 5 mg daily. 5. Iron vitamin 1 tablet daily. DISCHARGE PLAN: The patient will be discharged home. He is to follow up with his PCP within 1 week and he is also to follow up with Dr. Jasso in 1 to 2 weeks. TIME SPENT: Over 35 minutes were spent on this discharge, more than 20 minutes of which was spent in direct ajrg-[id number]-[id number] contact with the patient in evaluation , physical exam, counseling, and coordination of care. The patient was also advised to come back to the ED if any worrisome symptoms. [id number]/[facility] #: [id number] SANDRITA
== END 2017-01-03 17:00 | disposition home or self-care (01) | DRG 812 ==
LOC: ED 10:23 → MED 14:07 → OBSVTOIN 01-02 12:18
PROVIDERS: ADMIT Internal Medicine; ATTEND Internal Medicine
PROC: 30233P1 Transfusion of Nonautologous Frozen Red Cells into Peripheral Vein, Percutaneous Approach (ICD-10-PCS; principal; 2017-01-01)
PROC: 0DBN8ZZ Excision of Sigmoid Colon, Via Natural or Artificial Opening Endoscopic (ICD-10-PCS; 2017-01-03)
DX: D50.9 Iron deficiency anemia, unspecified (principal); I10 Essential (primary) hypertension; K57.30 Diverticulosis of large intestine without perforation or abscess without bleeding; F81.9 Developmental disorder of scholastic skills, unspecified; K63.5 Polyp of colon; K64.8 Other hemorrhoids; Q55.9 Congenital malformation of male genital organ, unspecified; Z79.899 Other long term (current) drug therapy
CPT/HCPCS: 36415; 80048; 80053; 81003; 81015; 82272; 83605; 83690; 85014; 85018; 85025; 85060; 86850; 86880; 86900; 86901; 86922; 88305; 99156; 99157; A9270-GY; G0378; J1756; J1940; J2250; J2310; J2405; P9040

== ENCOUNTER 2022-11-16 21:27 | Observation (INO) ==
[2022-11-16] MEDS ORDERED: Furosemide 40 mg/4 ml IV VIAL IV SLOW PU ONE (23:44)
[2022-11-17 00:50] LABS: ABS Eosinophils 0.1 10^3/uL (0.0-0.5); ABS Lymphocytes 0.8 10^3/uL (1.0-4.8); ABS Monocytes 0.7 10^3/uL (0.0-1.1); ABS Nucleated RBC 0.03 10^3/ul; Eosinophil % 0.8 %; Hematocrit 48.6 % (38-53); Hemoglobin 14.8 g/dL (13.2-16.3); Lymphocyte % 10.7 %; Mean Corpuscular Hemoglobin 23.4 pg (27-33); Mean Corpuscular Hgb Conc 30.4 g/dL (31-36); Mean Platelet Volume 8.1 fL (7.5-11.2); Nucleated Red Blood Cells % 0.4 /100 WBC (0.0-0.4); Platelet Count 187 10^3/uL (150-450); Red Blood Count 6.31 10^6/uL (4.06-5.63); Red Cell Distribution Width 20.4 % (12-17); White Blood Count 7.5 10^3/uL (3.6-10.2)
[2022-11-17 00:54] LABS: INR 1.39 (0.88-1.18)
[2022-11-17 01:06] LABS: Albumin 3.5 g/dL (3.2-5.2); Albumin/Globulin Ratio 1.1 (1-3); C Reactive Protein 15.01 mg/L (<8.01); Calcium 10.2 mg/dL (8.6-10.3); Creatinine, Serum 0.75 mg/dL (0.67-1.17); Globulin 3.1 g/dL (2-4); Potassium 4.1 mmol/L (3.5-5.0); Total Bilirubin 0.6 mg/dL (0.2-1.0); Total Protein 6.6 g/dL (6.4-8.9); eGFR CKD-EPI 114.1 (>60)
[2022-11-17 01:28] LABS: Urine Appearance Clear; Urine Bilirubin Negative (Negative); Urine Blood 1+ (Negative); Urine Color Yellow; Urine Glucose Negative (Negative); Urine Ketones Negative (Negative); Urine Nitrite Negative (Negative); Urine Protein 2+(100 mg/dL) (Negative); Urine Specific Gravity 1.008 (1.002-1.030); Urine Urobilinogen Negative (Negative)
[2022-11-17 01:35] LABS: Urine Bacteria Absent (Absent); Urine Cellular Casts Present (Absent); Urine Granular Casts Present (Absent); Urine Red Blood Cell Absent (Absent); Urine White Blood Cell Trace(0-5/hpf) (Absent)
[2022-11-17 02:16] LABS: High Sensitivity Troponin 1 Hr 192 pg/mL (<20)
[2022-11-17] MEDS ORDERED: cefTRIAXone 1 gm/50 mL D5W 1 GM/50 ML BAG IV SCH (03:30)
[2022-11-17] MEDS ORDERED: Azithromycin 500 mg/250 ml NS 500 MG/250 ML BAG IVPB SCH (04:00)
[2022-11-17] MEDS ORDERED: Furosemide 40 mg/4 ml IV VIAL IV ONE (05:30)
[2022-11-17] MEDS ORDERED: Sulfur Hexaflouride MICROSPHR 25 MG VIAL ONE (08:21)
[2022-11-17] MEDS ORDERED: NS 0.9% 1000 ml BAG 1,000 ML IV ONE (10:03)
[2022-11-17 16:34] LABS: Blood Urea Nitrogen 8 mg/dL (6-24); Calcium 9.5 mg/dL (8.6-10.3); Chloride 87 mmol/L (101-111); Creatinine, Serum 0.62 mg/dL (0.67-1.17); Glucose 116 mg/dL (70-100); Potassium 3.6 mmol/L (3.5-5.0); Sodium 143 mmol/L (135-145); eGFR CKD-EPI 120.9 (>60)
[2022-11-17 17:12] LABS: CO2 Carbon Dioxide 49 mmol/L (22-32)
[2022-11-17] MEDS ORDERED: NS 0.9% 1000 ml BAG 1,000 ML IV SCH (17:30)
[2022-11-18] MEDS ORDERED: cefTRIAXone 1 gm/50 mL D5W 1 GM/50 ML BAG IV SCH (05:00)
[2022-11-18 06:13] LABS: ABS Eosinophils 0.1 10^3/uL (0.0-0.5); ABS Monocytes 0.6 10^3/uL (0.0-1.1); ABS Neutrophils 4.7 10^3/uL (1.5-7.6); ABS Nucleated RBC 0.02 10^3/ul; Eosinophil % 1.6 %; Hematocrit 42.5 % (38-53); Lymphocyte % 15.6 %; Mean Corpuscular Hemoglobin 23.4 pg (27-33); Mean Corpuscular Hgb Conc 30.7 g/dL (31-36); Mean Corpuscular Volume 76.3 fL (80-97); Mean Platelet Volume 7.9 fL (7.5-11.2); Nucleated Red Blood Cells % 0.3 /100 WBC (0.0-0.4); Platelet Count 165 10^3/uL (150-450); Red Blood Count 5.57 10^6/uL (4.06-5.63); Red Cell Distribution Width 19.9 % (12-17); White Blood Count 6.5 10^3/uL (3.6-10.2)
[2022-11-18 06:32] LABS: Blood Urea Nitrogen 7 mg/dL (6-24); Calcium 9.7 mg/dL (8.6-10.3); Chloride 88 mmol/L (101-111); Creatinine, Serum 0.55 mg/dL (0.67-1.17); Glucose 93 mg/dL (70-100); Magnesium 1.3 mg/dL (1.9-2.7); Potassium 3.3 mmol/L (3.5-5.0); Sodium 145 mmol/L (135-145); eGFR CKD-EPI 125.3 (>60)
[2022-11-18 06:47] LABS: CO2 Carbon Dioxide 51 mmol/L (22-32)
[2022-11-18] MEDS ORDERED: Potassium Chloride LIQUID 20 MEQ/15 ML LIQUID PO ONE ×2 (07:25→09:51)
[2022-11-18] MEDS ORDERED: Magnesium Sulfate IV 3 GM in NS 0.9% 100 ml BAG 100 ML IVPB ONE (07:26)
[2022-11-18 07:41] LABS: PO2 Arterial 73 mmHg (80-100)
[2022-11-18 07:57] LABS: PCO2 Arterial 84 mmHg (35-45)
[2022-11-18 09:30] LABS: Venous Bicarbonate HCO3 47.1 mmol/L (24-28)
[2022-11-18] MEDS ORDERED: acetaZOLAMIDE IV 500 MG in NS 0.9% 50 ML 50 ML IVPB ONE ×2 (09:48→17:57)
[2022-11-18] MEDS ORDERED: Furosemide 20 mg/2 ml IV VIAL IV ONE ×2 (09:49→16:14)
[2022-11-18] MEDS ORDERED: Potassium Chlor 20 meq TAB.ER PO ONE (13:22)
[2022-11-18] MEDS ORDERED: Iohexol 350 (CONTRAST) 500 ML MDV IV ONE (13:34)
[2022-11-18 15:57] LABS: Blood Urea Nitrogen 8 mg/dL (6-24); Calcium 10.2 mg/dL (8.6-10.3); Chloride 89 mmol/L (101-111); Creatinine, Serum 0.58 mg/dL (0.67-1.17); Glucose 99 mg/dL (70-100); Potassium 3.8 mmol/L (3.5-5.0); Sodium 141 mmol/L (135-145); eGFR CKD-EPI 123.3 (>60)
[2022-11-18 16:46] LABS: CO2 Carbon Dioxide 46 mmol/L (22-32)
[2022-11-19 05:43] LABS: ABS Eosinophils 0.2 10^3/uL (0.0-0.5); ABS Lymphocytes 0.8 10^3/uL (1.0-4.8); ABS Monocytes 0.5 10^3/uL (0.0-1.1); ABS Nucleated RBC 0.02 10^3/ul; Eosinophil % 2.9 %; Hematocrit 46.3 % (38-53); Hemoglobin 14.4 g/dL (13.2-16.3); Lymphocyte % 14.2 %; Mean Corpuscular Hemoglobin 23.5 pg (27-33); Mean Corpuscular Volume 75.7 fL (80-97); Mean Platelet Volume 7.9 fL (7.5-11.2); Nucleated Red Blood Cells % 0.3 /100 WBC (0.0-0.4); Platelet Count 168 10^3/uL (150-450); Red Blood Count 6.12 10^6/uL (4.06-5.63); Red Cell Distribution Width 19.9 % (12-17); White Blood Count 5.4 10^3/uL (3.6-10.2)
[2022-11-19 05:54] LABS: Calcium 10.1 mg/dL (8.6-10.3); Creatinine, Serum 0.69 mg/dL (0.67-1.17); Potassium 3.9 mmol/L (3.5-5.0)
[2022-11-19] MEDS ORDERED: Polyethylene Glycol 3350 17 GM PACKET PO PRN (10:00)
[2022-11-19] MEDS ORDERED: Magnesium Hydroxide LIQ 30 ML UDC PO PRN (10:00)
[2022-11-19 14:45] VITALS: BP 101/59
== END 2022-11-19 18:20 | disposition home or self-care (01) ==
LOC: ED 21:27 → EDHOLD 21:27 → SUATTDRO 11-17 03:09 → EDHOLD 11-17 17:44 → MEDTELE 11-17 18:13
PROVIDERS: ADMIT Internal Medicine; ATTEND Internal Medicine